=== PATIENT | female | born 1975 | race Caucasian/White ===

== ENCOUNTER 2017-03-04 05:50 | Day surgery (SDC) | payer BC ==
[~2017-03-04] VITALS: Ht 160 cm; Wt 59.0 kg
[~2017-03-04 05:50] MED LIST: AMBIEN5 MG PO; CALCIUM 600 +1 EAC6 PO; CLARITIN10 MG PO; CLONAZEPAM2 MG PO; FLEXERIL10 MG PO; FLUOXETINE HCL10 M1 PO; IBUPROFEN200 M1 PO; KLONOPIN0.5 MG PO; MULTIVITAMINS1 EAC7 PO; PEPCID20 MG PO; PERCOCET 10-321 EACH PO; PERCOCET 5-3251 EACH PO; PERCOCET 7.5-31 EACH PO; PRILOSEC20 MG PO; PROZAC20 MG PO; VITAMIN D2000 UNI1 PO
--- NOTE | 2017-03-04 07:50 | NUR ---
PT RESTING, ALERT, ORIENTED AND SUPPORTED BY HER ESTRELLITA. SHE SEEMED INFORMED, HAD FEW QUESTIONS. PT REQUESTED PRAYER, WILL FOLLOW NEEDED
--- NOTE | 2017-03-04 09:01 | NUR ---
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 RESP EVEN AND UNLABORED. 0853 O2 REMOVED. O2 SAT 100%.
--- NOTE | 2017-03-04 09:43 | NUR ---
PT IS BACK TO FROM PACU. SHE IS AWAKE, REPORTS BEING A LITTLE DROWSY. PAIN IS UNDER CONTROL. PACKING REMOVED FROM VAGINA ORDERED FOR DR. BYRNE. CALL LIGHT IS WITHIN REACH. PT'S IS AT THE BEDSIDE. NO OTHER C/O'S AT THIS TIME. WATER AND CRACKERS ON BEDSIDE TABLE. PT IS TOLERATING SIPS OF WATER.
--- NOTE | 2017-03-04 10:19 | NUR ---
PT UP OOB WITH STANDBY ASSIST TO THE RESTROOM. SHE IS ABLE TO VOID 450ML'S. PT IS REQUESTING MORE COFFEE. SHE IS GIVEN MESH UNDERWEAR WITH A JOHNY PAD. SOILED LINEN IS REMOVED FROM HER BED AND A BLUE ANGELA IS PLACED ON THE BED.
--- NOTE | 2017-03-04 11:21 | NUR ---
GLEN 1045: PT IS MEETING DC CRITERIA. SHE REQUESTS A PAIN PILL. PT HAS BEEN ABLE TO GET UP AND VOID, EATS CRACKERS, AND DRINKS WATER AND COFFEE WITHOUT ISSUE. SHE COMMUNICATES THAT SHE WOULD LIKE TO GO HOME.
--- NOTE | 2017-03-06 13:45 | OR ---
[facility] [address] [place], [place] [address] Signed DATE OF OPERATION: 03/04/2017 SURGEON: Olivia Byrne MD PREOPERATIVE DIAGNOSES: 1. History of stress urinary incontinence, status post Obtryx TOT sling placement. 2. Incomplete bladder emptying due to bladder outlet obstruction, secondary to indwelling mid urethral sling. POSTOPERATIVE DIAGNOSES: 1. History of stress urinary incontinence, status post Obtryx TOT sling placement. 2. Incomplete bladder emptying due to bladder outlet obstruction, secondary to indwelling mid urethral sling. PROCEDURES PERFORMED: 1. Diagnostic cystoscopy. 2. Excision of mid urethral sling. SURGEON: Olivia Byrne MD ANESTHESIA: General. ESTIMATED BLOOD LOSS: 30 mL. COMPLICATIONS: None. SPECIMENS: None. DRAINS: A 16-[place]er Russell catheter, connected to gravity drainage. INDICATIONS FOR PROCEDURE: Ms. Molina is a very pleasant 41-year-old female with a history of stress urinary incontinence symptoms. In 2014, she underwent a combination case with both Dr. Mcclellan and Dr. Ruano, in which she underwent TAHBSO along with insertion of Obtryx TOT sling. Electronically Signed By: OLIVIA BYRNE MD 03/06/17 1345 PATIENT NAME: KIRSTEN MOLINA OPERATIVE REPORT DATE OF : 77 PHYSICIAN: OLIVIA BYRNE MD REPORT #: [id number] REPORT IS CONFIDENTIAL AND NOT TO BE RELEASED WITHOUT AUTHORIZATION [facility] [address] [place], [place] [address] Signed Since that time, the patient reports that she has been struggling to empty her bladder. She reports a very weak force of stream and has noted that she is now experiencing recurrent urinary tract infections. She underwent diagnostic cystoscopy, which did reveal some bladder wall changes consistent with bladder outlet obstruction. There was no evidence of extrusion of the mid urethral sling on examination, however I did determine that she is likely experiencing bladder outlet obstruction due to the presence of hypertension of the sling. After discussion of the nature of the procedure related to sling excision, the patient has agreed. She does understand that she has an approximately 30% chance of recurrence of her stress urinary incontinence symptoms. She presents today to undergo excision of her mid urethral sling. OPERATIVE FINDINGS: 1. Approximately 2 cm worth of the patient's sling was excised and removed from the area of the urethra. I would dissect it down and extract it more, however the sling appeared to be very well embedded into the periurethral tissue, so I aborted any measures to continue to dissect the sling to the level of the bilateral pubic rami. 2. Cystoscopy was performed after excision of the sling, which revealed no evidence of any iatrogenic damage to the urethra or bladder neck. My re-evaluation of the bladder revealed no new changes since her most recent cystoscopy. DESCRIPTION OF PROCEDURE: After informed consent was obtained, the patient was taken back to the operating room. [facility] to the operating room table, where general anesthesia was induced. She was placed in mid-high to high dorsal lithotomy position and her genitalia prepped and draped in standard sterile fashion. A 16-[place] Russell catheter was inserted into her bladder and her bladder was emptied completely. A Mario retractor was then placed over the genitalia and hooks were inserted to allow for better visualization of the anterior vaginal wall and suburethral space. Once the hooks were placed, one Allis was placed approximately 0.5 cm inferior to her urethra and a 2nd one was placed approximately 4 cm below. Approximately 10 mL of 0.25% Marcaine with epinephrine were then injected into the periurethral space to allow for improved dissection. An approximately 3 cm vertical incision was made in the anterior vaginal wall just over the urethra. Prior to this incision, I had made an attempt to palpate the sling well with a Russell catheter in place, however it was not easily palpable. Using Metzenbaum, I dissected the vertical incision bilaterally towards the pubic rami. With my finger, I was able to locate the sling and dissect the periurethral tissue embedded around it. I inserted a right angle under the sling once I had dissected it free from the surrounding tissue. I then incised the sling with a straight scissor. I took hold of each side of the sling in an attempt to dissect it down towards the each respective pubic ramus as far as I could. I then was able to extract each side of the exposed sling for a total amount of approximately 2 cm of sling excised. All the while hemostasis was achieved via FloSeal as well as judicious use of electrocautery, avoiding Electronically Signed By: OLIVIA BYRNE MD 03/06/17 1346 PATIENT NAME: KIRSTEN MOLINA OPERATIVE REPORT DATE OF : 77 PHYSICIAN: OLIVIA BYRNE MD REPORT #: [id number] REPORT IS CONFIDENTIAL AND NOT TO BE RELEASED WITHOUT AUTHORIZATION [address] [address] Signed the area of the urethra at all times. Once I was satisfied that hemostasis had been achieved, the incision was closed in a continuous running fashion using 2-0 Vicryl. A diagnostic cystoscopy was then performed. Please see above findings. I then reinserted the Russell catheter and drained the patient's bladder yet again. Vaginal packing impregnated with AVC cream was then inserted into the vagina and the procedure was terminated. The patient tolerated the procedure well without any complication. She will now be transferred to the postanesthesia care unit in stable condition. DISPOSITION: I discussed the details of today's procedure with the patient's and answered all of his questions. I reiterated with him today that the patient is at risk of recurrence of her stress symptoms and that this occurs approximately 30% of the time. I also instructed the patient to avoid any heavy lifting for at least the next 10 days. She was given Bactrim for a total of seven days today, along with Percocet 5/325, dispensed #20 as needed for pain. She will be scheduled to return to clinic in approximately three weeks to undergo her first postoperative evaluation. MD JOÃO Chanel/ZAK /[id number] Electronically Signed By: OLIVIA BYRNE MD 03/06/17 1345 PATIENT NAME: JESSEKIRSTEN ZELAYA OPERATIVE REPORT DATE OF : 77 PHYSICIAN: OLIVIA BYRNE MD REPORT #: [id number] REPORT IS CONFIDENTIAL AND NOT TO BE RELEASED WITHOUT AUTHORIZATION
== END 2017-03-04 11:10 | disposition home or self-care (01) ==
LOC: DS 05:50 → OPS 05:50 → DS 06:45 → OPS 11:10
PROVIDERS: Urology
PROC: 0TSD0ZZ Reposition Urethra, Open Approach (ICD-10-PCS; principal; 2017-03-04 06:45)
DX: N39.3 Stress incontinence (female) (male) (principal); R33.9 Retention of urine, unspecified; N13.8 Other obstructive and reflux uropathy; F41.9 Anxiety disorder, unspecified; F32.9 Major depressive disorder, single episode, unspecified; Z90.49 Acquired absence of other specified parts of digestive tract; Z90.710 Acquired absence of both cervix and uterus; Z88.1 Allergy status to other antibiotic agents; Z87.891 Personal history of nicotine dependence; Z98.890 Other specified postprocedural states
CPT/HCPCS: 00860; J0696; J1100; J1885; J2250; J2405; J2704; J2765; J3010; J7120

== ENCOUNTER → 2017-12-19 | Emergency (ER) | payer OTHER, BC ==
[~2017-12-19] VITALS: Ht 160 cm; Wt 59.0 kg
[~2017-12-19] MED LIST changes: +ZOLPIDEM TARTRAT5 MG PO
== END ==
LOC: ED 15:43
DX: S61.233A Puncture wound without foreign body of left middle finger without damage to nail, initial encounter (principal); W46.0XXA Contact with hypodermic needle, initial encounter; Z88.1 Allergy status to other antibiotic agents; Z79.899 Other long term (current) drug therapy
CPT/HCPCS: 84460; 86703; 86707; 86803; 87350; 99283

== ENCOUNTER 2018-07-04 10:01 | Day surgery (SDC) | payer BC ==
[~2018-07-04] VITALS: Ht 160 cm; Wt 62.6 kg
[2018-07-04] MEDS ORDERED: OMEPRAZOLE20 MG PO (10:23)
--- NOTE | 2018-07-04 12:22 | NUR ---
07/04/18 1222 Rebecca David 1216 PATIENT ARRIVES TO PACU SLEEPING, OPENS EYES WITH VERBAL STIMULI, THEN BACK TO SLEEP. RESP EVEN AND UNLABORED, NC AT 2 LITERS, OFF ON ARRIVAL TO PACU.
--- NOTE | 2018-07-05 21:40 | OR ---
[facility] [address] [place] [place] [address] Signed DATE OF OPERATION: 07/04/2018 SURGEON: Aaron Horne MD PREOPERATIVE DIAGNOSES: 1. Recurrent episode of severe dysphagia, epigastric pain. 2. Longstanding clinical reflux symptoms. POSTOPERATIVE DIAGNOSES: 1. No evidence of dominant stricture; no sign of felinization of esophagus. 2. Possible minimal Schatzki's ring, normal flap valve. PROCEDURE PERFORMED: Esophagogastroduodenoscopy with biopsy . ANESTHESIA: Intravenous sedation, fentanyl 100 mcg, and Versed 3 mg. 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 She has had longstanding "reflux" type symptoms including substernal burning pain and other similar such symptoms. She has had increasing dysphagia and recent episode of very significant dysphagia with some pills. This included midesophageal pain and inability to swallow her pills. She had shortness of breath and drank a Coca-Cola, which seemed to help her at an urging of her colleagues while at work. She has been taking Prilosec previously 20 mg a day and Pepcid 40 mg a day with no change of her situation. She has no associated hematemesis. She occasionally feels that her esophagus is "on fire." She drinks a cup of coffee daily. Coffee is swallowed without problem. She notes that stress increases her symptoms quite markedly. She has no family history of esophageal cancer. She does take Prozac and Xanax. She is admitted at this time to undergo upper endoscopy and possible dilation depending on clinical findings. She understands the risks of bleeding, infection, and perforation. FINDINGS: There is no dominant stricture. If at most was possibly a minimal Schatzki's ring in the distal portion, but it is quite subtle and probably of no real significance. The mucosa appeared normal. There was no sign of corrugated appearance or felinization to suggest eosinophilic esophagitis. The biopsies were taken in the distal and midportion. The flap valve itself was quite good overall. The stomach was normal as was the Electronically Signed By: AARON HORNE MD 07/05/18 2140 PATIENT NAME: KIRSTEN MOLINA OPERATIVE REPORT DATE OF : 77 REPORT #: [id number] PHYSICIAN: AARON HORNE MD PCP: MARY BERGER PAC REPORT IS CONFIDENTIAL AND NOT TO BE RELEASED WITHOUT AUTHORIZATION [facility] [address] [place] [id number] Signed duodenum. CLOtest was -15 minutes postprocedure. DESCRIPTION OF PROCEDURE: The patient was brought to the endoscopy suite and placed in lateral decubitus position after undergoing topical lidocaine spray anesthesia. She was given intravenous sedation to the point of slurred speech and nystagmus with full cardiopulmonary monitoring. A bite block was placed. An Olympus video upper endoscope was passed in the hypopharynx. The vocal cords and surrounding soft tissue appeared normal. The scope was advanced to the esophagus without problem. Gross appearance of the esophagus showed it to be normal. The scope was passed to the stomach, which was insufflated with air. Rugal folds appeared normal. There was bile within the stomach, however, more than I would have expected. Notably, she has had cholecystectomy in the past. The pylorus was reasonably normal. Scope was passed through into the duodenum, which was normal. Biopsies were taken of the duodenum to assess for celiac disease. The scope was withdrawn. A retroflexed view undertaken showing a normal flap valve. Biopsies were taken of the antrum for both JOCE and pathologic testing. Scope was withdrawn to the distal esophagus. Careful inspection showed no sign of true stricture and certainly no Scott's epithelium. Biopsies were taken of the distal most esophagus multiply and the scope withdrawn to the mid esophagus where the biopsies were taken as well. Further withdrawal of scope showed no other findings. Scope was removed. The patient was taken to recovery room in good condition. CONCLUDING DIAGNOSIS: The patient did not certainly have a stricture, though there is mild minimal scar in the distal portion, which would not have been noticed or it not for her clinical history that is known to me. There is no evidence of stricture neoplasm. No Scott's epithelium. There is no gross evidence of eosinophilic esophagitis but that is a possibility still. Concerns were maintained for possible esophageal spasm in response to some episodes of reflux itself. PLAN: I would recommend Prilosec 20 mg daily and prescribed also nitroglycerin sublingual tab 0.4 mg to have if episode should occur. Pending the results of her biopsies, we will see her back in 2-3 weeks. If there are problems in the meantime, she will let me know. The possibility of a bile reflux esophagitis with secondary spasm was also considered. I do not believe that Carafate at this time will necessarily be beneficial but will be considered if symptoms were not stabilized or improved. Aaron Horne MD Electronically Signed By: AARON HORNE MD 07/05/18 1909 PATIENT NAME: KIRSTEN MOLINA OPERATIVE REPORT DATE OF : 77 REPORT #: [id number] PHYSICIAN: AARON HORNE MD PCP: MARY BERGER REPORT IS CONFIDENTIAL AND NOT TO BE RELEASED WITHOUT AUTHORIZATION [address] [place] [address] Signed /MADELINE /[id number] cc: Mary Berger PA-C Copies: MARY BERGER ~ Electronically Signed By: AARON HORNE MD 07/05/18 2140 PATIENT NAME: KIRSTEN MOLINA OPERATIVE REPORT DATE OF : 77 REPORT #: [id number] PHYSICIAN: AARON HORNE MD PCP: MARY BERGER REPORT IS CONFIDENTIAL AND NOT TO BE RELEASED WITHOUT AUTHORIZATION
== END 2018-07-04 13:00 | disposition home or self-care (01) ==
LOC: OPS 10:01 → DS 10:01 → OPS 13:00
PROVIDERS: Surgery
PROC: 0DB78ZX Excision of Stomach, Pylorus, Via Natural or Artificial Opening Endoscopic, Diagnostic (ICD-10-PCS; 2018-07-04)
PROC: 0DB28ZX Excision of Middle Esophagus, Via Natural or Artificial Opening Endoscopic, Diagnostic (ICD-10-PCS; 2018-07-04)
PROC: 0DB38ZX Excision of Lower Esophagus, Via Natural or Artificial Opening Endoscopic, Diagnostic (ICD-10-PCS; 2018-07-04)
PROC: 0DB98ZX Excision of Duodenum, Via Natural or Artificial Opening Endoscopic, Diagnostic (ICD-10-PCS; principal; 2018-07-04 11:00)
DX: K20.9 Esophagitis, unspecified (principal); K21.9 Gastro-esophageal reflux disease without esophagitis; F41.9 Anxiety disorder, unspecified; Z88.1 Allergy status to other antibiotic agents; Z79.899 Other long term (current) drug therapy; Z90.49 Acquired absence of other specified parts of digestive tract
CPT/HCPCS: 99153; G0500; J2250; J3010; J7120

== ENCOUNTER 2019-06-21 10:30 | Emergency (ER) | payer OTHER, BC ==
[~2019-06-21] VITALS: Ht 160 cm; Wt 59.0 kg
[~2019-06-21 10:30] MED LIST changes: +OMEPRAZOLE20 MG PO
--- OUTSIDE RECORDS SUMMARY | 2019-06-21 10:32 | XMS ---
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 Tia has no Care Guidelines for this patient. [place] VISIT COUNT (12 MO.) 1 JONAH Mccormack TOTAL 1 NOTE: Visits indicate total known visits. ED/UCC VISIT TRACKING (12 MO.) 06/21/2019 10:31 JONAH Lowe [place] TYPE: Emergency COMPLAINT: - NEEDLE STICK EXPOSURE INPATIENT VISIT TRACKING (12 MO.) No inpatient visits to display in this time frame [email or web address]
== END 2019-06-21 11:42 | disposition home or self-care (01) ==
LOC: ED 10:30
DX: S31.130A Puncture wound of abdominal wall without foreign body, right upper quadrant without penetration into peritoneal cavity, initial encounter (principal); Z88.1 Allergy status to other antibiotic agents; Z79.899 Other long term (current) drug therapy; W26.8XXA Contact with other sharp object(s), not elsewhere classified, initial encounter
CPT/HCPCS: 84460; 86703; 86707; 86803; 87350; 99283

== ENCOUNTER 2024-12-21 11:59 | Day surgery (SDC) | payer OTHER ==
[~2024-12-21] VITALS: Ht 160 cm; Wt 56.3 kg
[~2024-12-21 11:59] MED LIST changes: +IBLOOD GLUCOSE TEST STRIP 1 EA TEST VI PRN; +LACTATED RINGER'S 1,000 ML IV SCH; +LIDOCAINE HCL 1% 5 ML SDV INJ ONE; +LIDOCAINE HCL 4% 50 ML BTL TOP SCH
[2024-12-21] MEDS ORDERED: fentaNYL citrate 100 MCG/2 ML VIAL ONE (12:17)
[2024-12-21] MEDS ORDERED: MIDAZOLAM HCL 5 MG/5 ML VIAL ONE (12:17)
[2024-12-21] MEDS ORDERED: BUPROPION HCL150 M2 PO (12:23)
[2024-12-21] MEDS ORDERED: AMITRIPTYLINE H10 MG PO (12:23)
[2024-12-21] MEDS ORDERED: GABAPENTIN300 MG PO (12:24)
[2024-12-21] MEDS ORDERED: PROTONIX40 MG PO (12:24)
[2024-12-21] MEDS ORDERED: ESTRADIOL1 EAC8 TD (12:25)
[2024-12-21] MEDS ORDERED: ADDERALL XR 2020 MG PO (12:25)
[2024-12-21] MEDS ORDERED: BUTALBIT-ACETA1 EACH PO (12:27)
[2024-12-21 12:39] VITALS: BP 118/71
--- NOTE | 2024-12-21 13:34 | NUR ---
12/21/24 1334 Jazmin Morales 1329: PT ARRIVES TO PACU DROWSY. SHE ANSWERS QUESTIONS APPROPRIATELY. REPROT RECEIVED FROM AVIONICS SUPERVISOR.
[2024-12-21 14:16] VITALS: BP 122/75
--- NOTE | 2024-12-24 11:30 | OR ---
[facility] [address] [place], [place] [address] Signed DATE OF OPERATION: 12/21/2024 SURGEON: Aaron Horne MD PREOPERATIVE DIAGNOSIS: Severe substernal burning pain considered esophagitis. POSTOPERATIVE DIAGNOSIS: Normal-appearing esophagus, poor flap valve, mild antral gastritis. PROCEDURE: Esophagogastroduodenoscopy with biopsy. ANESTHESIA: Intravenous sedation, fentanyl 100 mcg, and Versed 4 mg. INDICATION: This 49-year-old woman is a patient of DANIEL Kay and well known to me from the past. She underwent upper endoscopy by me in 2019 showing mild chronic esophagitis, but no evidence of Scott's epithelium. There was a minimal Schatzki's ring. At that time, she was having issues of mild dysphagia. The patient has been taking Protonix generally speaking since that time and in the past several months has had severe substernal burning and severe pain. She has doubled her dose of Protonix with no appreciable benefit. She has no associated dysphagia or hematemesis. She is here to undergo upper endoscopy to better characterize her problem, understand the risk of bleeding, infection, and perforation. FINDINGS: The mucosa of the esophagus was surprisingly normal. There was antral gastritis, which was not excessive and certainly no ulcer. CLOtest was negative at 15 minutes post procedure. The esophageal flap valve was easily thwarted, but there was no sign of large hiatal hernia proper. The duodenum was essentially normal. DESCRIPTION OF PROCEDURE: The patient was brought to the endoscopy suite, given topical lidocaine hypopharyngeal anesthesia and placed in lateral decubitus position. She was given intravenous sedation to the point of slurred speech and nystagmus. Full cardiopulmonary monitoring was maintained. A bite block was placed and an Olympus video upper endoscope passed in the hypopharynx. The vocal cords were normal. There were some radha-arytenoid inflammatory change that appeared. The scope was advanced into the esophagus without problem. Electronically Signed By: AARON HORNE MD 12/24/24 1130 PATIENT NAME: KIRSTEN MOLINA OPERATIVE REPORT DATE OF : 77 REPORT #: [id number] PHYSICIAN: AARON HORNE MD PCP: MARY BERGER PAC REPORT IS CONFIDENTIAL AND NOT TO BE RELEASED WITHOUT AUTHORIZATION [facility] [address] [place], [place] [address] Signed Throughout its length, it was remarkably normal. Certainly, there was no evidence of Scott's epithelium, inflammation, stricture, varices, or other issue. The scope was passed through the stomach without problem. Rugal folds appeared normal. The antrum did appear mildly inflamed. Pylorus was normal. Scope was passed through into the duodenum. The duodenum is essentially normal. Biopsies were obtained nevertheless to assess for celiac disease. The scope was withdrawn and biopsies then taken of the antrum for both JOCE and pathologic testing. Retroflexed view and withdrawal of the scope showed easy effacement of the apparent flap valve. There was no sign of large hiatal hernia, however. The scope was straightened, withdrawn and biopsies taken of the distal esophageal mucosa, which again was remarkably normal as well as the mid esophagus. Further withdrawal showed no other abnormalities. Scope was removed. The patient was taken to recovery room in good condition. CONCLUDING DIAGNOSIS: Normal-appearing esophagus and no evidence of stricture. Flap valve was poor, which may be indicative of reflux possibilities. There was antral gastritis, which unlikely correlate to the substernal burning pain. The duodenum was normal and CLOtest was negative. Given the severity of her substernal pain, which she has associated with "reflux," it does make me wonder if she may have an esophageal spasm issue. On that basis, we will order video esophagogram to better characterize this. Would have her change from Protonix to omeprazole 20 mg p.o. b.i.d. and see back in the office after video esophagram was complete. MD ETHEL Rivera/ZAK /[id number] cc: Mary Berger PA-C Copies: MARY BERGER ~ Electronically Signed By: AARON HORNE MD 12/24/24 1130 PATIENT NAME: KIRSTEN MOLINA OPERATIVE REPORT DATE OF : 77 REPORT #: [id number] PHYSICIAN: AARON HORNE MD PCP: MARY BERGER REPORT IS CONFIDENTIAL AND NOT TO BE RELEASED WITHOUT AUTHORIZATION
--- NOTE | 2024-12-24 18:10 | PATH ---
[facility] [address] [place], [place] [address] Signed SPECIMEN(S): A DUODENUM BIOPSY SPECIMEN(S): B ANTRUM BIOPSY SPECIMEN(S): C LOWER ESOPHAGUS BIOPSY SPECIMEN(S): D MIDDLE ESOPHAGUS BIOPSY SPECIMEN SOURCE: A. DUODENUM BIOPSY B. ANTRUM BIOPSY C. LOWER ESOPHAGUS BIOPSY D. MIDDLE ESOPHAGUS BIOPSY CLINICAL HISTORY: GERD, eosinophilic esophagitis FINAL PATHOLOGIC DIAGNOSIS: A. Duodenum biopsy: - Benign duodenal mucosa, negative for specific diagnostic abnormality. B. Antrum biopsy: - Benign gastric mucosa with focal mild chronic inflammation. - Helicobacter pylori immunostain is negative for organisms. C. Lower esophagus biopsy: - Benign esophageal epithelium, negative for significantly increased eosinophils or glandular mucosa. D. Middle esophagus biopsy: - Benign esophageal epithelium, negative for increased epithelial eosinophils. - Negative for glandular mucosa. COMMENT: A Helicobacter pylori immunostain is performed with appropriate positive and negative controls on block B1 and is negative for organisms. [facility] MICROSCOPIC EXAMINATION: Histologic sections of all submitted blocks are examined by light microscopy. These findings, together with the gross examination, support the pathologic diagnosis. GROSS DESCRIPTION: A. The specimen, labeled and designated "Pierce, duodenum biopsy," is received in formalin and consists of two haq soft tissue fragments, ranging from 0.1-0.7 cm. Entirely submitted in (A1). PATIENT NAME: KIRSTEN MOLINA PATHOLOGY DATE OF : 77 REPORT #: [id number] PHYSICIAN: BATSHEVA PATHOLOGY PCP: BRYAN JOY PAC REPORT IS CONFIDENTIAL AND NOT TO BE RELEASED WITHOUT AUTHORIZATION [facility] [address] [place], [place] [address] Signed B. The specimen, labeled and designated "Pierce, antrum biopsy," is received in formalin and consists of three haq soft tissue fragments, ranging from 0.1-0.5 cm. Entirely submitted in (B1). C. The specimen, labeled and designated "Pierce, lower esophagus biopsy," is received in formalin and consists of three haq soft tissue fragments, ranging from 0.4-0.5 cm. Entirely submitted in (C1). D. The specimen, labeled and designated "Pierce, middle esophagus biopsy," is received in formalin and consists of three haq soft tissue fragments, ranging from 0.1-0.4 cm. Entirely submitted in (D1). VB (under the direct supervision of a pathologist) The Gross Description was prepared using a voice recognition system. The report was reviewed for accuracy; however, sound-alike word errors, addition and/or deletions may occur. If there is any question about this report, please contact Client Services. ADDITIONAL NOTES: Immunohistochemical and/or in situ hybridization studies if performed in this case included appropriate positive controls that reacted as expected. This test was developed and its performance characteristics determined by [facility]. It has not been cleared or approved by the U.S. Food and Drug Administration. The FDA has determined that such clearance or approval is not necessary. This test is used for clinical purposes. It should not be regarded as investigational or for research. [facility] is certified under the Clinical Laboratory Improvement Amendments of 1988 (CLIA) as qualified to perform high complexity clinical laboratory testing. PERFORMING LABORATORY: Technical component was performed by [facility], [address] [place] [id number] (CLIA# [id number]). Professional interpretation was performed by [facility] [place] - [address] [place] [address]. [place] [address] (CLIA#: [id number]). Diagnostician: Yunior Villanueva MD Pathologist Electronically Signed 12/24/2024 Copies: PATIENT NAME: KIRSTEN MOLINA PATHOLOGY DATE OF : 77 REPORT #: [id number] PHYSICIAN: BATSHEVA PATHOLOGY PCP: BRYAN JOY PAC REPORT IS CONFIDENTIAL AND NOT TO BE RELEASED WITHOUT AUTHORIZATION [address] [address] Signed ~ PATIENT NAME: KIRSTEN MOLINA PATHOLOGY DATE OF : 77 REPORT #: [id number] PHYSICIAN: BATSHEVA PATHOLOGY PCP: BRYAN JOY PAC REPORT IS CONFIDENTIAL AND NOT TO BE RELEASED WITHOUT AUTHORIZATION
== END 2024-12-21 14:25 | disposition home or self-care (01) ==
LOC: DS 11:59
PROVIDERS: ATTEND Surgery
PROC: 0DB68ZX Excision of Stomach, Via Natural or Artificial Opening Endoscopic, Diagnostic (ICD-10-PCS; 2024-12-21)
PROC: 0DB28ZX Excision of Middle Esophagus, Via Natural or Artificial Opening Endoscopic, Diagnostic (ICD-10-PCS; 2024-12-21)
PROC: 0DB38ZX Excision of Lower Esophagus, Via Natural or Artificial Opening Endoscopic, Diagnostic (ICD-10-PCS; 2024-12-21)
PROC: 0DB98ZX Excision of Duodenum, Via Natural or Artificial Opening Endoscopic, Diagnostic (ICD-10-PCS; principal; 2024-12-21 13:00)
DX: K29.50 Unspecified chronic gastritis without bleeding (principal); K21.00 Gastro-esophageal reflux disease with esophagitis, without bleeding; I10 Essential (primary) hypertension; Z88.1 Allergy status to other antibiotic agents; Z91.041 Radiographic dye allergy status; Z79.899 Other long term (current) drug therapy
CPT/HCPCS: 99153; G0500; J2250; J3010; J7121